=== PATIENT | male | born 1965 | race African-American/Black ===

== ENCOUNTER 2024-11-25 16:47 | Emergency (ER) | payer OTHER ==
[~2024-11-25] VITALS: Ht 182.9 cm; Wt 90.7 kg
[2024-11-25 17:02] VITALS: TEMP 36.7; O2SAT 98
[2024-11-25] MEDS ORDERED: NAPR-1176 MT (19:12)
[2024-11-25 19:36] VITALS: BP 159/102; PULSE 87; RESP 18; O2SAT 100
== END 2024-11-25 19:41 | disposition home or self-care (01) ==
LOC: ER 16:47
DX: M19.011 Primary osteoarthritis, right shoulder (principal); M17.0 Bilateral primary osteoarthritis of knee; Z79.1 Long term (current) use of non-steroidal anti-inflammatories (NSAID)
CPT/HCPCS: 73030; 73560; 99284